=== PATIENT | female | born 1960 | race Caucasian/White ===

== ENCOUNTER 2019-03-11 17:35 | Observation (INO) | payer BC ==
[~2019-03-11] VITALS: Ht 154.9 cm; Wt 77.0 kg
[2019-03-11] MEDS ORDERED: GLUCOPHAGE1000 MG PO (17:46)
[2019-03-11] MEDS ORDERED: ALTACE1.25 MG PO (17:46)
[2019-03-11] MEDS ORDERED: GLIMEPIRIDE2 MG PO (17:47)
[2019-03-11] MEDS ORDERED: LIPITOR40 MG PO (17:48)
[2019-03-11] MEDS ORDERED: VITAMIN D31000 UNI2 PO (17:48)
[2019-03-11 18:22] LABS: BASOPHILS 0.1 % (0-2); EOSINOPHILS 0.2 % (0-7); HEMATOCRIT 37.5 % (36.0-48.0); HEMOGLOBIN 13.3 g/dL (12-16); IMMATURE GRANULOCYTES 1.3 % (0-5); MCH 32.9 pg (26.0-34.0); MCHC 35.5 g/dL (31.0-37.0); MCV 92.8 fL (80.0-100.0); MEAN PLATELET VOLUME 10.5 fL (7.4-10.4); MONOCYTES 4.5 % (2-11); NEUTROPHILS 78.9 % (40-80); PLATELET COUNT 255 10x3/uL (130-400); RBC 4.04 10x6/uL (4.00-5.40); RDW 12.1 % (11.5-14.5); WBC 14.1 10x3/uL (4.8-10.8)
[2019-03-11 18:42] LABS: APTT 30.5 SECONDS (22.8-39.4); INR 1.19 (0.85-1.17); PROTIME 14.6 SECONDS (11.6-15.0)
[2019-03-11 18:43] LABS: ALBUMIN 3.7 g/dL (3.4-5.0); ALKALINE PHOSPHATASE 82 U/L (46-116); ALT (SGPT) 31 U/L (10-68); BILIRUBIN - TOTAL 0.38 mg/dL (0.2-1.3); CALC OSMOLALITY 285 mosm/kg (275-300); CALCIUM 8.7 mg/dL (8.5-10.1); CARBON DIOXIDE 21.8 mmol/L (21.0-32.0); CHLORIDE - SERUM 101 mmol/L (98-107); GLUCOSE 246 mg/dL (74-106); POTASSIUM - SERUM 3.8 mmol/L (3.5-5.1); PROTEIN - SERUM 7.6 g/dL (6.4-8.2); SODIUM 137 mmol/L (136-145); UREA NITROGEN 24 mg/dL (7-18); eGFR NON AFRICAN AMERICAN 60 mL/min (90-120)
[2019-03-11 18:54] LABS: CKMB 0.5 U/L (0.0-3.6); CREATINE KINASE 87 UL (21-215); MAGNESIUM - SERUM 1.8 mg/dL (1.8-2.4); THYROID STIMULATING HORMONE 2.57 uIU/mL (0.36-3.74)
[2019-03-11 19:00] VITALS: BP 136/63
[2019-03-11 19:00] LABS: TROPONIN-I < 0.017 ng/mL (0.000-0.060)
--- NOTE | 2019-03-11 19:15 | NUR ---
REPORT RECIEVED FROM RYAN HURTADO RN
[2019-03-11 19:30] VITALS: BP 136/67
[2019-03-11 20:00] VITALS: BP 133/66
--- NOTE | 2019-03-11 20:20 | NUR ---
URINE SENT TO LAB.
[2019-03-11 20:30] VITALS: BP 122/61
[2019-03-11 20:43] LABS: APPEARANCE CLEAR (CLEAR); COLOR YELLOW (YELLOW); NITRITE NEGATIVE (NEGATIVE); PROTEIN NEGATIVE (NEGATIVE)
[2019-03-11 20:44] LABS: BILIRUBIN NEGATIVE (NEGATIVE); GLUCOSE 1000 mg/dL (NEGATIVE); KETONE MODERATE mg/dL (NEGATIVE); UROBILINOGEN NORMAL (NORMAL)
[2019-03-11 20:46] LABS: UDS - AMPHET NEGATIVE QUAL (NEGATIVE); UDS - BARB NEGATIVE QUAL (NEGATIVE); UDS - BENZO NEGATIVE QUAL (NEGATIVE); UDS - COCAINE NEGATIVE QUAL (NEGATIVE); UDS - OPIATE NEGATIVE QUAL (NEGATIVE); UDS - PCP NEGATIVE QUAL (NEGATIVE); UDS - THC NEGATIVE QUAL (NEGATIVE)
[2019-03-11 21:00] VITALS: BP 114/62
[2019-03-12] VITALS: BP 136/68
[2019-03-12 00:21] LABS: ANION GAP 16.1 mmol/L (8-16); CALCIUM 8.4 mg/dL (8.5-10.1); CARBON DIOXIDE 21.8 mmol/L (21.0-32.0); CREATININE - SERUM 0.9 mg/dL (0.6-1.3); POTASSIUM - SERUM 3.9 mmol/L (3.5-5.1)
--- NOTE | 2019-03-12 00:35 | NUR ---
CONTINUES TO BE NAUSEATED. PHENAGREN ORDERED. AWAITING BEHAVIORAL HEALTH CLINICIAN TO RETRIEVE MEDICATION. WILL DEFER ASSESSMENTS UNTIL NAUSEA SUBSIDES.
[2019-03-12 00:48] VITALS: BP 136/68; BMI 32.0
[2019-03-12 04:00] VITALS: BP 125/76
--- NOTE | 2019-03-12 05:31 | NUR ---
REPORTS NAUSEA GONE. FSBS 183 AND INSULIN HELD D/T NPO ORDER.DEIES ANY NEEDS AT THIS TIME.
[2019-03-12 06:32] LABS: BASOPHILS 0 % (0-2); EOSINOPHILS 0 % (0-7); HEMATOCRIT 36.6 % (36.0-48.0); HEMOGLOBIN 12.9 g/dL (12-16); IMMATURE GRANULOCYTES 0.3 % (0-5); LYMPHOCYTES 6.5 % (15-50); MCH 32.3 pg (26.0-34.0); MCHC 35.2 g/dL (31.0-37.0); MCV 91.7 fL (80.0-100.0); MEAN PLATELET VOLUME 10.8 fL (7.4-10.4); MONOCYTES 0.6 % (2-11); NEUTROPHILS 92.6 % (40-80); PLATELET COUNT 249 10x3/uL (130-400); RBC 3.99 10x6/uL (4.00-5.40); RDW 12.1 % (11.5-14.5); WBC 10.8 10x3/uL (4.8-10.8)
--- NOTE | 2019-03-12 07:15 | NUR ---
INITIAL ROUNDING, BEDSIDE REPORT. PATIENT RESTING SUPINE IN THE BED, CALL LIGHT IN REACH. PATIENT DENIES ANY NEEDS, REPORTS A SLIGHT HEADACHE.
[2019-03-12 07:19] LABS: CALC OSMOLALITY 282 mosm/kg (275-300); CALCIUM 8.4 mg/dL (8.5-10.1); CARBON DIOXIDE 21.8 mmol/L (21.0-32.0); CHLORIDE - SERUM 104 mmol/L (98-107); CREATININE - SERUM 0.7 mg/dL (0.6-1.3); GLUCOSE 194 mg/dL (74-106); MAGNESIUM - SERUM 1.9 mg/dL (1.8-2.4); PHOSPHOROUS 3.8 mg/dL (2.5-4.9); SODIUM 138 mmol/L (136-145); T4 THYROXIN - FREE 0.92 ng/dL (0.76-1.46); THYROID STIMULATING HORMONE 1.03 uIU/mL (0.36-3.74); UREA NITROGEN 18 mg/dL (7-18); eGFR NON AFRICAN AMERICAN 90 mL/min (90-120)
--- NOTE | 2019-03-12 07:28 | NUR ---
ASSISTED THE PATIENT TO THE BATHROOM. ASSISTED THE PATIENT TO UNDRESS AND CHANGE INTO A GOWN, AND BACK INTO THE BED. WHITE BOARD UPDATED. . CALL LIGHT IN REACH. PATIENTS PURSE NOTED TO BE UNDER HER PILLOW.
[2019-03-12 11:37] VITALS: BP 155/51
[2019-03-12 13:01] VITALS: Ht 154.9 cm; Wt 77.0 kg
--- NOTE | 2019-03-13 08:30 | MORECARE ---
CASE MANAGEMENT DISCHARGE SUMMARY PATIENT: DEWEY SHARPE UNIT: [id number] ADM DATE: 03/11/19 AGE: 58 : 56 SEX: F ROOM/BED: D.2112 AUTHOR: FLAVIA HENSLEY PHYSICIAN: REFERRING PHYSICIAN: JUSTIN BELLA MD DATE OF SERVICE: 03/13/19 Discharge Plan Patient Name: DEWEY SHARPE [facility] [facility] 1960 Planned Disposition: Home Anticipated Discharge Date: 03/12/19 Discharge Date: 03/12/2019 Expected LOS: 1 Initial Reviewer: [email or web address] Initial Review Date: 03/13/2019 Generated: 03/13/19 9:30 am Patient Name: DEWEY SHARPE Page [id number] at 0830 All edits/amendments must be made on the electronic document DICTATION DATE: 03/13/19829 SCREW MACHINE OPERATOR: MARI 03/13/19 08 RPT#: [id number] DC DATE:03/12/19 STATUS: DIS IN [facility] [address] [place] [address] END OF REPORT
== END 2019-03-12 16:34 | disposition home or self-care (01) ==
LOC: D.ER 17:35 → D.M2 22:45 → OBSVTIME 22:45 → D.M2 03-12 16:34
PROVIDERS: Emergency Medicine; Family Medicine; ADMIT Emergency Medicine; ATTEND Emergency Medicine
DX: R42 Dizziness and giddiness (principal); I10 Essential (primary) hypertension; E78.5 Hyperlipidemia, unspecified; E11.9 Type 2 diabetes mellitus without complications; H53.8 Other visual disturbances